=== PATIENT | female | born 1955 | race Caucasian/White ===

== ENCOUNTER 2021-09-02 10:25 | Outpatient (CLI) | payer MEDICARE ==
[2021-09-02 16:25] LABS: CHOL/HDL RATIO 3.7 (<4.4); CHOLESTEROL 301 mg/dL; HDL CHOLESTEROL 81 mg/dL; LDL CHOLESTEROL,CALCULATED 194 mg/dL; LDL/HDL RATIO 2.4 (<4.4); TRIGLYCERIDES 130 mg/dL; VLDL CHOLESTEROL 26 mg/dL
[2021-09-03 11:41] LABS: HEPATITIS C ANTIBODY REACTIVE (NON-REACTIVE)
[2021-09-07 08:11] LABS: HCV RNA QNT <1.18 NOT DETECTED Log IU/mL (NOT DETECTED); HCV RNA QUANT RT PCR <15 NOT DETECTED IU/mL (NOT DETECTED)
== END 2021-09-02 23:59 | disposition home or self-care (01) ==
LOC: LAB.R 10:25
PROVIDERS: ATTEND Internal Medicine
DX: Z00.00 Encounter for general adult medical examination without abnormal findings (principal); R53.83 Other fatigue; A69.20 Lyme disease, unspecified; Z13.6 Encounter for screening for cardiovascular disorders; Z11.59 Encounter for screening for other viral diseases; Z80.0 Family history of malignant neoplasm of digestive organs
CPT/HCPCS: 80061; 83721; 86803

== ENCOUNTER 2021-11-22 11:30 | Outpatient (CLI) | payer MEDICARE ==
--- NOTE | 2021-11-29 13:11 | Mammography Report ---
BILATERAL DIGITAL SCREENING MAMMOGRAM 3D/2D: 11/22/2021 CLINICAL: Routine screening. No prior exams were available for comparison. The tissue of both breasts is predominantly fatty. There is a possible asymmetry in the right breast at 11 o'clock posterior depth. No other significant masses, calcifications, or other findings are seen in either breast. IMPRESSION: INCOMPLETE: NEEDS ADDITIONAL IMAGING EVALUATION The possible asymmetry in the right breast is indeterminate. Additional views with possible ultrasou nd are recommended. This exam was interpreted at Station ID: [id number]. NOTE: For mammograms, a report in lay terms will be sent to the patient. Approximately 15% of breast malignancies will not be visualized mammographically. In the management of a palpable breast mass, a negative mammogram must not discourage biopsy of a clinically suspicious lesion. Electronically Signed By: Kvng Rocha M.D., jr/tre:11/29/2021 09:01:08 ACR BI-RADS Category 0: Incomplete 3340F PARENCHYMAL PATTERN: (F) - The breast(s) demonstrate(s) diffuse fatty replacement. BI-RADS CATEGORY: (0) - 0 Mammo and [place] [id number] Immediate follow-up LATERALITY: (B)
== END 2021-11-22 11:31 | disposition home or self-care (01) ==
LOC: DI.N 11:30
PROVIDERS: ATTEND Internal Medicine
DX: Z12.31 Encounter for screening mammogram for malignant neoplasm of breast (principal); R92.8 Other abnormal and inconclusive findings on diagnostic imaging of breast

== ENCOUNTER 2021-12-28 12:54 | Outpatient (CLI) | payer MEDICARE ==
--- NOTE | 2021-12-28 13:31 | DEXA Report ---
PROCEDURE: Dexa Spine and/or Hip INDICATIONS: DETENTION (CURRENT) USE OF BISPHOSPHONATES TECHNIQUE: Dual energy x-ray absorptiometry (DXA) was performed on a [employer] System. Regions measur ed are the AP Spine, femoral neck, and if needed forearm. COMPARISON: None. FINDINGS: Lumbar Spine: Bone Mineral Density 1.087 g/cm/cm,T score -0.8, normal Left Hip: Bone Mineral Density 0.896 g/cm/cm,T score -0.9, normal Left Femoral Neck: Bone Mineral Density 0.882 g/cm/cm, T score -1.1, normal (T score greater or equal to -1.0: NORMAL) (T score from -1.1 to -2.4: OSTEOPENIA) (T score less than or equal to -2.5 to: OSTEOPOROSIS) Impression: Normal bone mineral density. However, it is noted that values at the left femoral neck are approachin g osteopenia. Patients with diagnosis of osteoporosis or osteopenia should have regular bone mineral density assess ment. For those eligible for Medicare, routine testing is allowed once every 2 years. Testing frequ ency can be increased for patients who have rapidly progressing disease or for those who are receivin g medical therapy to restore bone mass. Reviewed by: Kristin Lyons MD on 12/28/2021 1:30 PM PDT Approved by: Kristin Lyons MD on 12/28/2021 1:30 PM PDT Station ID: [id number]
== END 2021-12-28 12:55 | disposition home or self-care (01) ==
LOC: DI 12:54
PROVIDERS: ATTEND Internal Medicine
DX: Z79.83 Long term (current) use of bisphosphonates (principal)